=== PATIENT | female | born 1985 | race Caucasian/White ===

== ENCOUNTER 2017-09-05 06:05 | Emergency (ER) | payer OTHER | END 2017-09-05 07:26 | disposition home or self-care (01) | LOC: M ED 06:05 | DX: R68.84 Jaw pain (principal); Z98.818 Other dental procedure status; M79.9 Soft tissue disorder, unspecified; Z88.0 Allergy status to penicillin; Z88.1 Allergy status to other antibiotic agents; Z88.5 Allergy status to narcotic agent; Z88.8 Allergy status to other drugs, medicaments and biological substances | CPT/HCPCS: 99282 ==

== ENCOUNTER 2017-09-05 22:52 | Emergency (ER) | payer OTHER ==
[2017-09-05] MEDS ORDERED: LORazepam 2 MG/ML VIAL (J2060) IM (23:30)
[2017-09-06 00:42] LABS: BASO # 0.1 10^3/uL (0.0-0.2); BASO % 0.5 % (0.0-1.0); EOS # 0.1 10^3/uL (0.0-0.50); EOS % 1.2 % (0.0-3.0); HEMATOCRIT 36.3 % (36.0-47.0); HEMOGLOBIN 12.8 g/dl (12.0-15.5); IMMATURE GRANULOCYTE % 0.3 % (0-3.0); LYMPH # 1.3 10^3/uL (1.5-4.5); LYMPH % 12.2 % (24.0-44.0); MEAN CORPUSCULAR HEMOGLOBIN 30.3 pg (27.0-33.0); MEAN CORPUSCULAR HGB CONC 35.3 g/dl (32.0-36.5); MONO % 9.5 % (0.0-5.0); NEUTROPHILS # 8.2 10^3/uL (1.8-7.7); NEUTROPHILS % 76.3 % (36.0-66.0); PLATELET COUNT, AUTOMATED 179 10^3/uL (150-450); RED BLOOD COUNT 4.22 10^6/uL (4.00-5.40); RED CELL DISTRIBUTION WIDTH 12.6 % (11.5-14.5); WHITE BLOOD COUNT 10.8 10^3/uL (4.0-10.0)
[2017-09-06] MEDS: NS 1,000 ML IV (00:55)
[2017-09-06] MEDS: ONDANSETRON 4MG/2ML VIAL (J2405) IV (00:55)
[2017-09-06 01:02] LABS: ANION GAP 13 MEQ/L (8-16); BLOOD UREA NITROGEN 8 MG/DL (7-18); CALCIUM LEVEL 9.1 MG/DL (8.5-10.1); CARBON DIOXIDE LEVEL 21 MEQ/L (21-32); CHLORIDE LEVEL 110 MEQ/L (98-107); CREATININE FOR GFR 0.53 MG/DL (0.55-1.30); GLOMERULAR FILTRATION RATE > 60.0 (>60); GLUCOSE, FASTING 96 MG/DL (70-100); HCG, SERUM QUANTITATIVE < 1.0 MIU/ML; POTASSIUM SERUM 3.6 MEQ/L (3.5-5.1); SODIUM LEVEL 144 MEQ/L (136-145)
[2017-09-06] MEDS: LORazepam 2 MG/ML VIAL (J2060) IV (01:06)
[2017-09-06] MEDS: CLINDAMYCIN 900 MG in APPROPRIATE DILUENT 1 EA IV (01:10)
[2017-09-06] MEDS ORDERED: ISOVUE-370 76% 100ML VIAL (Q9967) As Ordered (01:10)
[2017-09-06] MEDS: IBUPROFEN 600 MG TAB PO (03:08)
== END 2017-09-06 05:51 | disposition home or self-care (01) ==
LOC: M ED 22:52
DX: L03.211 Cellulitis of face (principal); I48.91 Unspecified atrial fibrillation; Z98.890 Other specified postprocedural states; Z79.899 Other long term (current) drug therapy; Z88.6 Allergy status to analgesic agent; Z88.1 Allergy status to other antibiotic agents; Z88.0 Allergy status to penicillin; Z88.5 Allergy status to narcotic agent
CPT/HCPCS: J2405

== ENCOUNTER 2017-09-06 21:28 | Emergency (ER) | payer OTHER ==
[2017-09-06] MEDS: NS 1,000 ML IV (10:00)
[2017-09-06 23:24] LABS: BASO % 0.3 % (0.0-1.0); EOS % 0.2 % (0.0-3.0); HEMATOCRIT 35.9 % (36.0-47.0); HEMOGLOBIN 12.4 g/dl (12.0-15.5); IMMATURE GRANULOCYTE % 0.5 % (0-3.0); LYMPH # 0.7 10^3/uL (1.5-4.5); LYMPH % 5.8 % (24.0-44.0); MEAN CORPUSCULAR HGB CONC 34.5 g/dl (32.0-36.5); MEAN CORPUSCULAR VOLUME 86.7 fl (80.0-96.0); MONO # 0.6 10^3/uL (0.0-0.8); MONO % 4.7 % (0.0-5.0); NEUTROPHILS # 11.2 10^3/uL (1.8-7.7); NEUTROPHILS % 88.5 % (36.0-66.0); PLATELET COUNT, AUTOMATED 202 10^3/uL (150-450); RED BLOOD COUNT 4.14 10^6/uL (4.00-5.40); RED CELL DISTRIBUTION WIDTH 12.7 % (11.5-14.5); WHITE BLOOD COUNT 12.7 10^3/uL (4.0-10.0)
[2017-09-06 23:42] LABS: ANION GAP 8 MEQ/L (8-16); BLOOD UREA NITROGEN 8 MG/DL (7-18); C REACTIVE PROTEIN QUANTITATIV 1.58 MG/DL (0.00-0.30); CALCIUM LEVEL 8.7 MG/DL (8.5-10.1); CARBON DIOXIDE LEVEL 22 MEQ/L (21-32); CHLORIDE LEVEL 113 MEQ/L (98-107); GLOMERULAR FILTRATION RATE > 60.0 (>60); GLUCOSE, FASTING 107 MG/DL (70-100); SODIUM LEVEL 143 MEQ/L (136-145)
== END 2017-09-07 01:47 | disposition home or self-care (01) ==
LOC: M ED 09-07 01:47
DX: R20.2 Paresthesia of skin (principal); T49.6X5A Adverse effect of otorhinolaryngological drugs and preparations, initial encounter; Y92.9 Unspecified place or not applicable; Y93.9 Activity, unspecified; Z79.899 Other long term (current) drug therapy; Z88.6 Allergy status to analgesic agent; Z88.0 Allergy status to penicillin; Z88.1 Allergy status to other antibiotic agents; Z88.5 Allergy status to narcotic agent
CPT/HCPCS: 83735

== ENCOUNTER → 2017-09-09 | Outpatient (REF) | payer OTHER ==
[2017-09-09 19:38] LABS: BACTERIA, URINE AUTO 1+ (NEGATIVE); MUCUS, URINE SMALL (NEGATIVE); RBC, URINE AUTO 0 /HPF (0-3); SQUAMOUS EPITHELIAL CELL UR AU 4 /HPF (0-6); WBC, URINE AUTO 1 /HPF (0-3)
== END ==
LOC: M LAB REF 09-11 12:14
DX: R30.0 Dysuria (principal)
CPT/HCPCS: 81015

== ENCOUNTER → 2017-10-18 | Outpatient (REF) | payer OTHER ==
[2017-10-18 18:21] LABS: HCG, SERUM QUANTITATIVE 17193 MIU/ML
[2017-10-18 18:41] LABS: HEMATOCRIT 39.2 % (36.0-47.0); HEMOGLOBIN 13.4 g/dl (12.0-15.5); MEAN CORPUSCULAR HEMOGLOBIN 29.9 pg (27.0-33.0); MEAN CORPUSCULAR HGB CONC 34.2 g/dl (32.0-36.5); MEAN CORPUSCULAR VOLUME 87.5 fl (80.0-96.0); PLATELET COUNT, AUTOMATED 273 10^3/uL (150-450); RED BLOOD COUNT 4.48 10^6/uL (4.00-5.40); WHITE BLOOD COUNT 12.2 10^3/uL (4.0-10.0)
[2017-10-19 09:53] LABS: RUBELLA IgG QUALITATIVE IMMUNE (IMMUNE)
[2017-10-19 09:56] LABS: HBsAg Prenatal NEGATIVE (NEGATIVE)
[2017-10-19 10:21] LABS: HEPATITIS C VIRUS ABY INDEX 0.1 INDEX (<0.8)
[2017-10-19 10:22] LABS: HIV 1&2 SCREEN CENTAUR NEGATIVE (NEGATIVE)
== END ==
LOC: M LAB REF 16:51
DX: O36.80X0 Pregnancy with inconclusive fetal viability, not applicable or unspecified (principal)
CPT/HCPCS: 86762

== ENCOUNTER 2017-10-29 07:30 | Emergency (ER) | payer OTHER ==
[2017-10-29 08:24] LABS: AMORPHOUS SEDIMENT RFX SMALL (NEGATIVE); KETONE, URINE AUTO RFX NEGATIVE (NEGATIVE); LEUKOCYTE ESTERASE UR AUTO RFX NEGATIVE (NEGATIVE); MUCUS, URINE RFX SMALL (NEGATIVE); NITRITE, URINE AUTO RFX NEGATIVE (NEGATIVE); RBC, URINE AUTO RFX 0 /HPF (0-3); SPECIFIC GRAVITY UR AUTO RFX 1.014 (1.002-1.035); SQUAM EPITHELIAL CELL UR AURFX 1 /HPF (0-6); WBC, URINE AUTO RFX 0 /HPF (0-3)
== END 2017-10-29 09:57 | disposition home or self-care (01) ==
LOC: M ED 07:30
DX: O99.611 Diseases of the digestive system complicating pregnancy, first trimester (principal); Z3A.01 Less than 8 weeks gestation of pregnancy; Z79.899 Other long term (current) drug therapy; Z88.6 Allergy status to analgesic agent; Z88.0 Allergy status to penicillin; Z88.1 Allergy status to other antibiotic agents; Z88.5 Allergy status to narcotic agent
CPT/HCPCS: 76801

== ENCOUNTER → 2018-01-03 | Outpatient (REF) | payer OTHER ==
[2018-01-03 14:25] LABS: ALT/SGPT 18 U/L (12-78); AST/SGOT 16 U/L (7-37); BILIRUBIN,TOTAL 0.4 MG/DL (0.2-1.0); CREATININE FOR GFR 0.36 MG/DL (0.55-1.30); GLOMERULAR FILTRATION RATE > 60.0 (>60); LDH LACTATE DEHYDROGENASE 157 U/L (84-246); URIC ACID 2.9 MG/DL (2.6-6.0)
== END ==
LOC: M LAB REF 13:26
DX: O09.293 Supervision of pregnancy with other poor reproductive or obstetric history, third trimester (principal); Z34.82 Encounter for supervision of other normal pregnancy, second trimester

== ENCOUNTER → 2018-01-17 | Outpatient (REF) | payer OTHER | LOC: M LAB REF 09:25 | DX: J02.9 Acute pharyngitis, unspecified (principal) | CPT/HCPCS: 87081 ==

== ENCOUNTER → 2018-01-21 | Outpatient (REF) | payer OTHER ==
[2018-01-21 11:59] LABS: CREATININE, URINE 71.2 MG/DL; URINE TOTAL PROTEIN 10.5 MG/DL (0-12)
[2018-01-21 12:11] LABS: CREATININE 24 HOUR, URINE 640.8 MG/24HR (600-1800); TOTAL PROTEIN 24 HOUR URINE 94.5 MG/24HR (50-150); TOTAL VOLUME, URINE 900 ML
== END ==
LOC: M LAB REF 10:18
DX: O09.293 Supervision of pregnancy with other poor reproductive or obstetric history, third trimester (principal); Z34.82 Encounter for supervision of other normal pregnancy, second trimester

== ENCOUNTER → 2018-03-28 | Outpatient (CLI) | payer OTHER ==
[~2018-03-28] MED LIST: ACET-683 PO; CLIN150C14 PO; IBUP1TAB7 PO; IBUP80TA PO; MAGN100T PO; MELA5TAB17 PO; PERI12LIQ PO; PERI12LIQ SSP; PRENCHW PO; ZOFR4TAB14 PO
[2018-03-28 10:48] LABS: HEMATOCRIT 38.9 % (36.0-47.0); HEMOGLOBIN 13.2 g/dl (12.0-15.5); MEAN CORPUSCULAR HEMOGLOBIN 29.6 pg (27.0-33.0); MEAN CORPUSCULAR HGB CONC 33.9 g/dl (32.0-36.5); MEAN CORPUSCULAR VOLUME 87.2 fl (80.0-96.0); PLATELET COUNT, AUTOMATED 171 10^3/uL (150-450); RED BLOOD COUNT 4.46 10^6/uL (4.00-5.40); WHITE BLOOD COUNT 10.5 10^3/uL (4.0-10.0)
== END ==
LOC: M LAB 09:04
PROVIDERS: ATTEND Obstetrics & Gynecology
DX: Z34.82 Encounter for supervision of other normal pregnancy, second trimester (principal); Z3A.00 Weeks of gestation of pregnancy not specified

== ENCOUNTER → 2018-05-14 | Outpatient (REF) | payer OTHER | LOC: M LAB REF 13:28 | PROVIDERS: ATTEND Obstetrics & Gynecology | DX: Z34.83 Encounter for supervision of other normal pregnancy, third trimester (principal); Z36.85 Encounter for antenatal screening for Streptococcus B ==

== ENCOUNTER 2018-05-26 20:18 | Inpatient (IN) | payer OTHER ==
[~2018-05-26] VITALS: Ht 160 cm; Wt 75.3 kg
[2018-05-26 20:58] VITALS: BP 160/100
[2018-05-26 21:32] LABS: HEMATOCRIT 41.3 % (36.0-47.0); HEMOGLOBIN 14.1 g/dl (12.0-15.5); MEAN CORPUSCULAR HEMOGLOBIN 28.8 pg (27.0-33.0); MEAN CORPUSCULAR HGB CONC 34.1 g/dl (32.0-36.5); MEAN CORPUSCULAR VOLUME 84.3 fl (80.0-96.0); PLATELET COUNT, AUTOMATED 161 10^3/uL (150-450); WHITE BLOOD COUNT 14.1 10^3/uL (4.0-10.0)
[2018-05-26 21:46] LABS: ALT/SGPT 12 U/L (12-78); BILIRUBIN,TOTAL 0.4 MG/DL (0.2-1.0); CREATININE FOR GFR 0.47 MG/DL (0.55-1.30); GLOMERULAR FILTRATION RATE > 60.0 (>60); LDH LACTATE DEHYDROGENASE 203 U/L (84-246); URIC ACID 4.3 MG/DL (2.6-6.0)
[2018-05-26 21:48] VITALS: BP 140/95
[2018-05-26 21:55] LABS: CREATININE,RANDOM URINE 47.9 MG/DL; TOTAL PROTEIN,RANDOM URINE 6.1 MG/DL (0.0-12.0)
[2018-05-26 22:30] VITALS: BP 139/87
[2018-05-26 23:13] VITALS: BP 133/87
[2018-05-26] MEDS ORDERED: LACTATED RINGER'S 1000 ML IV STA (23:36)
[2018-05-26] MEDS ORDERED: LR 1,000 ML IV SCH (23:36)
[2018-05-26] MEDS ORDERED: BICITRA 30ML SOLN UDC PO ONE (23:45)
[2018-05-27] VITALS (8 sets, daily range): BP systolic 120–143; BP diastolic 59–83
[2018-05-27] MEDS ORDERED: OXYTOCIN INJ 10 UNITS/ML VIAL (J2590) As Ordered ONE (00:56)
[2018-05-27] MEDS ORDERED: MORPHINE PRES-FREE INJ 10 MG/10 ML VIAL (J2274) As Ordered ONE (01:02)
[2018-05-27] MEDS ORDERED: diphenhydrAMINE INJ 50MG/ML VIAL (J1200) IV PRN (01:15)
[2018-05-27] MEDS ORDERED: NALOXONE INJ 0.4 MG/1 ML VIAL (J2310) IV PRN ×2 (01:15)
[2018-05-27] MEDS ORDERED: NALBUPHINE HCL 10 MG/ML AMP (J2300) IV PRN (01:15)
[2018-05-27] MEDS ORDERED: ONDANSETRON 4MG/2ML VIAL (J2405) IV PRN ×3 (01:15→02:15)
[2018-05-27] MEDS ORDERED: METOCLOPRAMIDE INJ 10MG/2ML VIAL (J2765) IV PRN (01:15)
[2018-05-27] MEDS ORDERED: KETOROLAC 60 MG/2 ML VIAL (J1885) As Ordered ONE (01:44)
[2018-05-27] MEDS ORDERED: fentaNYL 100 MCG/2 ML INJECTION (J3010) As Ordered ONE (01:44)
[2018-05-27] MEDS ORDERED: dexameTHASONE 4 MG/ML 1ML VIAL (J1100) As Ordered ONE (01:44)
[2018-05-27] MEDS ORDERED: ONDANSETRON 4MG/2ML VIAL (J2405) As Ordered ONE (01:44)
[2018-05-27] MEDS ORDERED: ePHEDrine SULFATE 25 MG/5 ML(5MG/ML) SYRINGE As Ordered ONE (01:48)
[2018-05-27] MEDS ORDERED: OXYTOCIN DRIP 30 UNITS in APPROPRIATE DILUENT 1 EA IV SCH (02:12)
[2018-05-27] MEDS ORDERED: DOCUSATE SODIUM 100 MG CAP PO PRN (02:15)
[2018-05-27] MEDS ORDERED: LR 1,000 ML IV SCH (02:15)
[2018-05-27] MEDS ORDERED: RHOGAM 300 MCG (1500 IU) INJ (J2790) IM SCH (02:15)
[2018-05-27] MEDS ORDERED: MEASLES,MUMPS,RUBELLA VACCINE INJ (MMR-II) (90707) SC SCH (02:15)
[2018-05-27] MEDS ORDERED: fentaNYL 100 MCG/2 ML INJECTION (J3010) IV PRN (02:15)
[2018-05-27] MEDS ORDERED: OXYTOCIN 30 UNITS IN 0.9% NaCl 500ML IV BAG (J2590) As Ordered ONE (02:34)
[2018-05-27] MEDS ORDERED: diphenhydrAMINE INJ 50MG/ML VIAL (J1200) As Ordered ONE (02:39)
[2018-05-27] MEDS: LR 1,000 ML IV SCH ×3 (08:12→18:12)
[2018-05-27] MEDS: PRENATAL VITAMINS CHEWABLE TABLET PO SCH (08:12)
[2018-05-27] MEDS: KETOROLAC 30 MG/ML VIAL (J1885) IV SCH ×3 (08:13→20:10)
--- NOTE | 2018-05-27 13:18 | HPE ---
DATE OF ADMISSION: 05/26/2018 33-year-old, 3, para 2 female at 37 and 2/7 weeks gestation by last menstrual period and consistent with 7 week ultrasound, estimated date of confinement (EDC) of 06/15/2018, who presents with shortness of breath when lying down as well as upper abdominal discomfort. The patient feels more swelling and gets dizzy when she stands up. She has recently elevated blood pressure in an office visit. COURSE: The patient's care was at [facility]. care was unremarkable. Her final visit she had a blood pressure of 140/90 in the office. OBSTETRICAL HISTORY: 1. In 2012, 39 week section, 6 pound 9 ounce female , complicated by preeclampsia. 2. August 2014, 40 week section, 8 pound 4 ounce male infant, complicated by bladder injury. MEDICAL HISTORY: 1. Cardiac ablation for abnoirmal cardiac rhythm. PAST SURGICAL HISTORY: 1. Cardiac ablation. 2. section. 3. Oral surgery. SOCIAL HISTORY: The patient is . She denies cigarettes, alcohol or drug use. FAMILY HISTORY: Noncontributory. PHYSICAL EXAMINATION: Blood pressure 160/100, pulse 84. She appears mildly uncomfortable. Head and neck exam is normal. Lungs: Clear. Heart: Regular rate and rhythm. Abdomen: Gravid, nontender. heart tones category 1. Extremities: 1+ edema. Reflexes 3+. LABORATORIES: Blood type is O positive, Rubella immune, RPR is nonreactive. Hepatitis B and C negative. Group B streptococcus (GBS) negative. ASSESSMENT: 33-year-old 3, para 2 female at 37 and 3/7 weeks gestation. History of section times two. Presents with new diagnosis of preeclampsia. PLAN: Proceed with delivery. The patient will undergo repeat section with bilateral tubal ligation, consent signed. Surgery planned imminently. [facility]
--- NOTE | 2018-05-27 13:49 | RO ---
DATE OF PROCEDURE: 05/27/2018 PREPROCEDURE DIAGNOSIS: 37 and 2/7 weeks gestation, preeclampsia, prior section times two. POSTPROCEDURE DIAGNOSIS: 37 and 2/7 weeks gestation, preeclampsia, prior section times two. PROCEDURE: Repeat low transverse section and bilateral tubal ligation. SURGEON: Dr. Parveen Vanegas MUSIC SPECIALIST: ANESTHESIA: Spinal. ESTIMATED BLOOD LOSS: 500 mL. URINE OUTPUT: 100 mL. FINDINGS: 6 pound 8 ounce male , Apgars 9 and 9. Normal uterus, fallopian tubes and ovaries. DESCRIPTION OF PROCEDURE: The patient was taken to the operating room where spinal anesthesia was induced. She was prepped and draped in sterile fashion in the supine position. A Yoo catheter was placed. A Pfannenstiel skin incision was made with the scalpel and carried through to the fascia. The fascia was nicked and extended and the fascia was dissected off the rectus muscles. The peritoneal cavity was entered. A bladder flap was created. A curvilinear incision was made in the lower uterine segment until clear fluid was noted. This was extended manually. The infant was delivered from the vertex position without difficulty. The cord was doubly clamped and cut. The was handed off to the awaiting nurses. The placenta was expressed. The uterus was exteriorized and cleared of clots and debris. The uterine incision was closed with #0 Vicryl in a running locked fashion. A second imbricating layer of #0 Vicryl was placed. Attention was turned to the fallopian tubes. The tubes were grasped at the mid portion with a C[place]han clamp. A window was created in the broad ligament. A free tie of #3-0 chromic was placed around a segment of tube on either side of the clamp. A knuckle of tube was excised and sent to pathology bilaterally. The uterus was placed back in the abdominal cavity. The peritoneum was closed with #2-0 Vicryl in a running fashion. The fascia was closed with #0 Vicryl in a running fashion. The deep subcutaneous layer was irrigated. The skin was closed with #4-0 Monocryl subcuticular sutures. Sponge, needle and instrument counts were correct.
--- NOTE | 2018-05-27 21:03 | ECGEPIP ---
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
[2018-05-28 02:00] VITALS: BP 115/58
[2018-05-28] MEDS: IBUPROFEN 800 MG TAB PO SCH ×3 (04:41→20:40)
[2018-05-28 06:00] VITALS: BP 124/60
[2018-05-28] MEDS: PRENATAL VITAMINS CHEWABLE TABLET PO SCH (07:36)
[2018-05-28 07:53] LABS: HEMATOCRIT 28.3 % (36.0-47.0); MEAN CORPUSCULAR HEMOGLOBIN 29.1 pg (27.0-33.0); MEAN CORPUSCULAR HGB CONC 33.2 g/dl (32.0-36.5); MEAN CORPUSCULAR VOLUME 87.6 fl (80.0-96.0); PLATELET COUNT, AUTOMATED 118 10^3/uL (150-450); RED BLOOD COUNT 3.23 10^6/uL (4.00-5.40); WHITE BLOOD COUNT 11.1 10^3/uL (4.0-10.0)
[2018-05-28 07:58] LABS: HEMOGLOBIN 9.4 g/dl (12.0-15.5)
[2018-05-28 10:00] VITALS: BP 130/70
[2018-05-28] MEDS: ACETAMINOPHEN 500 MG TAB PO PRN ×2 (10:21→18:38)
[2018-05-28 14:00] VITALS: BP 140/71
[2018-05-28 18:00] VITALS: BP 134/74
[2018-05-28 22:29] VITALS: BP 138/78
[2018-05-29] MEDS: ACETAMINOPHEN 500 MG TAB PO PRN ×2 (02:03→08:40)
[2018-05-29 02:13] VITALS: BP 133/85
[2018-05-29] MEDS: IBUPROFEN 800 MG TAB PO SCH (04:56)
[2018-05-29 05:16] VITALS: BP 139/74
[2018-05-29] MEDS: PRENATAL VITAMINS CHEWABLE TABLET PO SCH (08:40)
[2018-05-29] MEDS ORDERED: COLA100C5 PO (09:43)
[2018-05-29] MEDS ORDERED: PRENTAB9 PO (09:43)
[2018-05-29] MEDS ORDERED: IBUP-1114 PO (09:43)
--- NOTE | 2018-05-30 21:15 | DSES ---
DATE OF ADMISSION: 05/26/2018 DATE OF DISCHARGE: 05/29/2018 HISTORY: A 33-year-old G3, P2 female at 37-2/7 weeks gestation presents with increased blood pressure and swelling for the last several days. She is known to have blood pressures as high as 160/100. She has a history of two prior sections. Planning on repeat section. care was through [facility]. HOSPITAL COURSE: Patient was admitted on 05/26/2018. She was observed for several hours and had multiple blood pressure readings. She had labs checked for pre-eclampsia, which were reassuring; however, due to elevated blood pressure, decision was made to proceed toward delivery. On 05/27/2018 patient underwent repeat low transverse section, bilateral tubal ligation, for a 6-pound 8-ounce male , scores 9 and 9. Her postoperative course was unremarkable. She had adequate return of bladder and bowel function. She was deemed stable for discharge on postoperative day #2. ADMISSION DIAGNOSES: , 37 weeks, pre-eclampsia. DISCHARGE DIAGNOSIS: Delivered. PROCEDURES: Repeat low transverse section, bilateral tubal ligation. DISPOSITION: Patient will followup with Dr. Jones in 2 weeks. Instructions were reviewed. edited: 05/31/2018 0723 tkf MTDD
== END 2018-05-29 10:20 | disposition home or self-care (01) | DRG 540 ==
LOC: M LDO 20:18 → M LDI 23:32 → M OBS 05-27 04:27
PROVIDERS: ADMIT Specialist; ATTEND Specialist
PROC: 0UB70ZZ Excision of Bilateral Fallopian Tubes, Open Approach (ICD-10-PCS; 2018-05-27)
PROC: 10D00Z1 Extraction of Products of Conception, Low, Open Approach (ICD-10-PCS; principal; 2018-05-27 01:04)
DX: O14.94 Unspecified pre-eclampsia, complicating childbirth (principal); Z30.2 Encounter for sterilization; O34.211 Maternal care for low transverse scar from previous cesarean delivery; Z37.0 Single live birth; Z3A.37 37 weeks gestation of pregnancy

== ENCOUNTER 2018-06-01 19:32 | Emergency (ER) | payer OTHER ==
[~2018-06-01] VITALS: Ht 160 cm; Wt 70.9 kg
[~2018-06-01 19:32] MED LIST changes: +COLA100C5 PO; +IBUP-1114 PO; +PRENTAB9 PO
[2018-06-01] MEDS ORDERED: fentaNYL 100 MCG/2 ML INJECTION (J3010) IV ONE (20:15)
[2018-06-01] MEDS ORDERED: METOCLOPRAMIDE INJ 10MG/2ML VIAL (J2765) IV ONE (20:15)
[2018-06-01 20:23] LABS: HEMATOCRIT 32.6 % (36.0-47.0); HEMOGLOBIN 11.1 g/dl (12.0-15.5); MEAN CORPUSCULAR HEMOGLOBIN 29.4 pg (27.0-33.0); MEAN CORPUSCULAR VOLUME 86.2 fl (80.0-96.0); PLATELET COUNT, AUTOMATED 212 10^3/uL (150-450); RED BLOOD COUNT 3.78 10^6/uL (4.00-5.40); WHITE BLOOD COUNT 14.5 10^3/uL (4.0-10.0)
[2018-06-01 20:44] LABS: BLOOD UREA NITROGEN 12 MG/DL (7-18); CALCIUM LEVEL 8.3 MG/DL (8.5-10.1); CARBON DIOXIDE LEVEL 20 MEQ/L (21-32); CHLORIDE LEVEL 113 MEQ/L (98-107); CREATININE FOR GFR 0.37 MG/DL (0.55-1.30); GLOMERULAR FILTRATION RATE > 60.0 (>60); GLUCOSE, FASTING 102 MG/DL (70-100); POTASSIUM SERUM 3.1 MEQ/L (3.5-5.1); SODIUM LEVEL 143 MEQ/L (136-145)
--- NOTE | 2018-06-01 21:27 | REPVR ---
EXAM: US Pelvis Complete, Transabdominal EXAM DATE/TIME: 06/01/2018 8:32 PM CLINICAL HISTORY: 33 years old, female; Pain; Pelvic pain; Prior surgery; Surgery date: 3-7 days post-operative; Surgery type: S/P c section on 05/27; Additional info: Post c section TECHNIQUE: Imaging protocol: Real-time transabdominal pelvic ultrasound with image documentation. Complete exam. COMPARISON: No relevant prior studies available. FINDINGS: Uterus/cervix: The uterus measures 14 CM in length by 7 CM in AP dimension by 10 CM in transverse dimension. The endometrium is complex and measuring 2 CM in thickness probably blood and blood products. There is no evidence of vascularity. The uterus is anteverted. Right adnexa: The right ovary could not be identified. Left adnexa: The patient had a on 05/27/2018. The left ovary measures 3 CM in length by 3 CM in AP dimension and there is vascular flow. Free fluid: Just superior to the scar deep within the anterior abdominal wall is a 10 CM transverse by 7 CM in length by 2 CM in thickness fluid collection probably representing a serous fluid collection. There is no evidence of free fluid in the cul-de-sac. IMPRESSION: 1. 10 x 7 x 2 CM hematoma deep within the anterior abdominal wall. 2. Complex appearance of the endometrium 2 CM in thickness probably blood and blood products. Electronically signed by: Chris Lobo On 06/01/2018 21:27:18 PM
[2018-06-01 21:54] VITALS: BP 130/71
[2018-06-01] MEDS ORDERED: POTASSIUM CHLORIDE 10 MEQ SR TABLET PO ONE (22:00)
[2018-06-01] MEDS ORDERED: IBUP-1022 PO (22:01)
--- NOTE | 2018-06-02 09:50 | ED PDOC ---
Post-Departure Follow-Up dr lucas faxed formal report of pelvic us for fu Dali Jarvis MD Jun 02, 2018 09:50
== END 2018-06-01 22:23 | disposition home or self-care (01) ==
LOC: M ED 19:32
DX: G89.18 Other acute postprocedural pain (principal); R10.9 Unspecified abdominal pain; L76.34 Postprocedural seroma of skin and subcutaneous tissue following other procedure; Z79.899 Other long term (current) drug therapy; Z88.1 Allergy status to other antibiotic agents; Z88.0 Allergy status to penicillin; Z88.5 Allergy status to narcotic agent; Z88.8 Allergy status to other drugs, medicaments and biological substances
CPT/HCPCS: 36415; 76856; 80048; 85027; 86850; 86900; 86901; 96374; 99284; J2765

== ENCOUNTER 2019-02-10 08:41 | Emergency (ER) | payer OTHER ==
[~2019-02-10] VITALS: Ht 160 cm; Wt 63.6 kg
[~2019-02-10 08:41] MED LIST changes: +IBUP-1022 PO; -MELA5TAB17 PO; +MELA5TAB31 PO
[2019-02-10] MEDS ORDERED: CYCLOBENZAPRINE 5MG TABLET PO ONE (09:45)
--- NOTE | 2019-02-10 10:12 | REP ---
Chest x-ray: Two views. History: Left shoulder pain . Comparison study: No comparison chest x-ray . Findings: The lungs are well inflated and free of infiltrate. The pleural angles are sharp. The heart size is normal. Pulmonary vasculature is not increased. No significant bony abnormality is seen. Impression: Negative chest x-ray. Electronically Signed by Kalen Ramírez MD 02/10/2019 10:03 A
--- NOTE | 2019-02-10 10:13 | REP ---
Left shoulder: Three views. History: Left shoulder pain. Findings: The left glenohumeral and acromioclavicular joints are normally aligned. Periarticular soft tissues are unremarkable. No fracture or subluxation is seen. Impression: Negative radiographs of the left shoulder. Electronically Signed by Kalen Ramírez MD 02/10/2019 10:04 A
[2019-02-10 10:50] LABS: CK-MB VALUE MASS < 1.0 NG/ML (<3.6); CPK CREATINE PHOSPHOKINASE 48 U/L (26-192); MB/CK RELATIVE INDEX 2.08 (< OR =4); TROPONIN I < 0.02 NG/ML (< 0.10)
[2019-02-10] MEDS ORDERED: IBUP80TA PO (11:25)
[2019-02-10] MEDS ORDERED: CYCL5TAB PO (11:25)
[2019-02-10 11:31] VITALS: BP 128/79
--- NOTE | 2019-02-10 16:53 | ECGEPIP ---
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
== END 2019-02-10 11:35 | disposition home or self-care (01) ==
LOC: M ED 09:45
DX: S46.912A Strain of unspecified muscle, fascia and tendon at shoulder and upper arm level, left arm, initial encounter (principal); M62.838 Other muscle spasm; M54.2 Cervicalgia; X50.3XXA Overexertion from repetitive movements, initial encounter; Y92.89 Other specified places as the place of occurrence of the external cause; Y93.9 Activity, unspecified; Y99.9 Unspecified external cause status; Z88.5 Allergy status to narcotic agent; Z88.1 Allergy status to other antibiotic agents; Z88.0 Allergy status to penicillin

== ENCOUNTER 2019-02-17 04:05 | Inpatient (IN) | payer OTHER ==
[~2019-02-17] VITALS: Ht 157.5 cm; Wt 69.8 kg
[~2019-02-17 04:05] MED LIST changes: +CYCL5TAB PO
[2019-02-17] MEDS ORDERED: METOPROLOL 5 MG/5 ML VIAL As Ordered ONE (04:24)
[2019-02-17 04:29] LABS: BASO # 0.1 10^3/uL (0.0-0.2); BASO % 0.5 % (0.0-1.0); EOS % 0.2 % (0.0-3.0); HEMATOCRIT 45.8 % (36.0-47.0); HEMOGLOBIN 15.3 g/dl (12.0-15.5); LYMPH # 1.3 10^3/uL (1.5-5.0); LYMPH % 10.9 % (24.0-44.0); MEAN CORPUSCULAR HEMOGLOBIN 28.7 pg (27.0-33.0); MEAN CORPUSCULAR HGB CONC 33.4 g/dl (32.0-36.5); MEAN CORPUSCULAR VOLUME 85.9 fl (80.0-96.0); MONO # 0.7 10^3/uL (0.0-0.8); MONO % 5.7 % (0.0-5.0); NEUTROPHILS # 9.4 10^3/uL (1.5-8.5); NEUTROPHILS % 82.1 % (36.0-66.0); PLATELET COUNT, AUTOMATED 421 10^3/uL (150-450); RED BLOOD COUNT 5.33 10^6/uL (4.00-5.40); WHITE BLOOD COUNT 11.4 10^3/uL (4.0-10.0)
[2019-02-17] MEDS ORDERED: METOPROLOL TART 50 MG TAB PO ONE (04:30)
[2019-02-17] MEDS: METOPROLOL 5 MG/5 ML VIAL IV SCH ×3 (04:46→05:13)
[2019-02-17 05:01] LABS: AMPHETAMINES LEVEL URINE NEGATIVE (NEGATIVE); BARBITURATES URINE NEGATIVE (NEGATIVE); BENZODIAZEPINES URINE NEGATIVE (NEGATIVE); CANNABINOIDS URINE NEGATIVE (NEGATIVE); COCAINE METABOLITE URINE NEGATIVE (NEGATIVE); METHADONE URINE NEGATIVE (NEGATIVE); OPIATES URINE NEGATIVE (NEGATIVE); PHENCYCLIDINE URINE NEGATIVE (NEGATIVE)
[2019-02-17 05:02] LABS: HCG, SERUM QUALITATIVE NEGATIVE (NEGATIVE)
[2019-02-17 05:11] LABS: BLOOD UREA NITROGEN 14 MG/DL (7-18); CALCIUM LEVEL 9.9 MG/DL (8.5-10.1); CARBON DIOXIDE LEVEL 20 MEQ/L (21-32); CHLORIDE LEVEL 113 MEQ/L (98-107); CK-MB VALUE MASS < 1.0 NG/ML (<3.6); CPK CREATINE PHOSPHOKINASE 29 U/L (26-192); CREATININE FOR GFR 0.75 MG/DL (0.55-1.30); ETHYL ALCOHOL (ETHANOL) < 0.003 % (0.000-0.010); GLOMERULAR FILTRATION RATE > 60.0 (>60); GLUCOSE, FASTING 124 MG/DL (70-100); MAGNESIUM LEVEL 2.3 MG/DL (1.8-2.4); MB/CK RELATIVE INDEX 3.45 (< OR =4); POTASSIUM SERUM 4.2 MEQ/L (3.5-5.1); SODIUM LEVEL 144 MEQ/L (136-145); TROPONIN I < 0.02 NG/ML (< 0.10)
[2019-02-17] MEDS ORDERED: FLECAINIDE 50MG TABLET PO ONE ×3 (05:45→21:00)
--- NOTE | 2019-02-17 07:58 | REP ---
Portable chest x-ray: Single view. History: Chest pain. Comparison study: February 10, 2019. Findings: EKG monitoring electrodes overlie the chest. Lungs are well inflated and clear. The pleural angles are sharp. Heart is not enlarged. Pulmonary vasculature is not increased. No significant bony abnormality. Impression: No acute disease. Electronically Signed by Kalen Ramírez MD 02/17/2019 07:49 A
[2019-02-17] MEDS ORDERED: ACETAMINOPHEN TAB 650MG DOSE (2X325MG) PO ONE (09:30)
[2019-02-17] MEDS ORDERED: ONDANSETRON 4MG/2ML VIAL (J2405) IV ONE (09:30)
[2019-02-17] MEDS: NS 1,000 ML IV SCH ×2 (11:29→18:26)
[2019-02-17] MEDS ORDERED: ACET-907 PO (11:39)
[2019-02-17] MEDS ORDERED: BENA25CA4 PO (11:39)
[2019-02-17] MEDS: METOPROLOL TART 25 MG TABLET PO SCH ×2 (14:12→17:34)
[2019-02-17 15:13] LABS: CK-MB VALUE MASS < 1.0 NG/ML (<3.6); CPK CREATINE PHOSPHOKINASE 23 U/L (26-192); MB/CK RELATIVE INDEX 4.35 (< OR =4); TROPONIN I < 0.02 NG/ML (< 0.10)
[2019-02-17 17:15] VITALS: BP 131/84
[2019-02-17] MEDS ORDERED: ENOXAPARIN 80 MG/0.8 ML SYRINGE (J1650) SC ONE (18:00)
--- NOTE | 2019-02-17 19:05 | CR ---
DATE OF CONSULTATION: 02/17/2019 This is an addendum to the official consultation note dictated by Dr. Volodymyr Izquierdo who is a medical advisor working with me today. In brief, Mrs. Owusu is a 33-year-old female who has no significant past medical history other than a history of atrial fibrillation. She tells me that she started having symptoms in her teens and 20s and eventually underwent atrial fibrillation ablation in 2009 after she had persistent atrial fibrillation for several days. To the best of her understanding, there was never any obvious etiology discovered. She was then asymptomatic until she got last year. She said that she had numerous episodes during her , at least an episode a day, but they were never very long and always resolved by next day. But last night she woke up at night to feed her baby, and as she took the baby, she suddenly experienced sensation of palpitations and dizziness that was persistent and she actually came to emergency room for further evaluation. She was found to be in atrial fibrillation with rapid ventricular response. She was slightly hypotensive. After receiving some fluids and IV metoprolol, her heart rate slowed down but never completely normalized. She received a total of 250 mg of flecainide but to my surprise, she did not convert into sinus rhythm. After she received additional beta blockers, her heart rate is now well controlled and she feels reasonably well but not completely back to normal. At bedside, she is very pleasant, alert and oriented. I do not appreciate any signs to suggest congestive heart failure. There is no goiter. Her lungs are clear. On heart exam, besides irregular rhythm is benign. I do not appreciate any displacement of precordial impulse. There is no murmur or gallop. She has no peripheral edema. ECG reveals and confirms presence of atrial fibrillation. Her CBC is normal other than mildly elevated white count of 11.4. Basic metabolic panel is unremarkable other than glucose 124. She had two sets of cardiac enzymes with negative troponins. Her TSH is 0.8. HCG is negative and toxicology screen is negative as well. Chest x-ray Is unremarkable. ASSESSMENT/PLAN: Mrs. Owusu is a 33-year-old female who reports a longstanding history of paroxysmal atrial fibrillation until ablation in 2009 in [place], [place]. She apparently did not have any symptomatic relapse until last year during . There was improvement after she delivered, but last night she developed sustained episode that so far has been lasting until now. I have to say that it is decidedly unusual for a young woman without significant past medical history to have atrial fibrillation. She has not had an echocardiogram but based on her ECG, physical exam, and clinical history, it is unlikely that she has any degree of systolic dysfunction. I also do not appreciate any evidence for valvular heart disease. I will give her additional dose of flecainide tonight. She also received single dose of Lovenox. If she is not in sinus rhythm by tomorrow morning, will tentatively plan on cardioversion. I discussed this plan with the patient.
[2019-02-17 20:00] VITALS: BP 134/84
[2019-02-17 20:24] LABS: CK-MB VALUE MASS < 1.0 NG/ML (<3.6); CPK CREATINE PHOSPHOKINASE 19 U/L (26-192); MB/CK RELATIVE INDEX 5.26 (< OR =4); TROPONIN I < 0.02 NG/ML (< 0.10)
[2019-02-17] MEDS ORDERED: diphenhydrAMINE 25 MG CAP PO ONE (21:45)
[2019-02-17] MEDS ORDERED: diphenhydrAMINE CREAM 30GM TOP PRN (22:00)
[2019-02-17 23:59] VITALS: BP 129/72
[2019-02-18] MEDS: METOPROLOL TART 25 MG TABLET PO SCH ×3 (00:15→12:36)
[2019-02-18] MEDS: NS 1,000 ML IV SCH (00:44)
[2019-02-18 04:00] VITALS: BP 118/84
[2019-02-18] MEDS ORDERED: ACETAMINOPHEN TAB 650MG DOSE (2X325MG) PO PRN (05:15)
[2019-02-18 06:59] LABS: HEMATOCRIT 39.9 % (36.0-47.0); MEAN CORPUSCULAR HEMOGLOBIN 28.7 pg (27.0-33.0); MEAN CORPUSCULAR HGB CONC 31.8 g/dl (32.0-36.5); MEAN CORPUSCULAR VOLUME 90.1 fl (80.0-96.0); PLATELET COUNT, AUTOMATED 276 10^3/uL (150-450); RED BLOOD COUNT 4.43 10^6/uL (4.00-5.40); WHITE BLOOD COUNT 9.4 10^3/uL (4.0-10.0)
[2019-02-18 07:08] LABS: HEMOGLOBIN 12.7 g/dl (12.0-15.5)
[2019-02-18 07:20] LABS: ALBUMIN 3.3 GM/DL (3.2-5.2); ALT/SGPT 72 U/L (12-78); BILIRUBIN,TOTAL 0.3 MG/DL (0.2-1.0); BLOOD UREA NITROGEN 13 MG/DL (7-18); CARBON DIOXIDE LEVEL 22 MEQ/L (21-32); CHLORIDE LEVEL 115 MEQ/L (98-107); CREATININE FOR GFR 0.58 MG/DL (0.55-1.30); GLOMERULAR FILTRATION RATE > 60.0 (>60); GLUCOSE, FASTING 82 MG/DL (70-100); MAGNESIUM LEVEL 1.9 MG/DL (1.8-2.4); POTASSIUM SERUM 3.8 MEQ/L (3.5-5.1); SODIUM LEVEL 144 MEQ/L (136-145); TOTAL PROTEIN 6.2 GM/DL (6.4-8.2)
[2019-02-18 08:00] VITALS: BP 134/90
[2019-02-18] MEDS ORDERED: BETAMETHASONE DIP 0.05% OINT 15 GM TOP SCH (09:00)
[2019-02-18] MEDS ORDERED: FLECAINIDE 50MG TABLET PO SCH (09:00)
[2019-02-18] MEDS ORDERED: METO1TAB7 PO (10:41)
[2019-02-18] MEDS ORDERED: FLEC25TA PO (10:41)
--- NOTE | 2019-02-18 10:42 | IPN ---
DATE: 02/18/2019 CARDIOLOGY PROGRESS NOTE Marisa is examined at bedside in progressive care unit (PCU). She feels much better today and converted back to normal sinus rhythm yesterday evening around 9:00 p.m. after an extra 150 mg flecainide orally. No issues throughout the night. She is feeling well, back to normal self and looking forward to going home. PHYSICAL EXAMINATION: VITAL SIGNS: Temperature 97.8, pulse 65, respirations 18, blood pressure 134/92, mean arterial pressure of 105, pulse oximetry 99% on room air. Weight is 69.8 kg. She is resting comfortably in bed and in no acute distress. Fully alert, oriented and pleasantly conversant. In better spirits today. Neck is supple without any jugular venous distention (JVD). HEART: Regular rate and rhythm. No longer in atrial fibrillation. No murmur, clicks or gallops. LUNGS: Clear throughout with equal chest rise. No adventitious sounds. ABDOMEN: Soft, nontender, nondistended. No lower extremity edema or tenderness. ASSESSMENT AND PLAN: This is a 33-year-old female with a history of what is presumed to be paroxysmal atrial fibrillation since her early 20s, likely secondary to . She underwent an ablation in 2009. She has had intermittent episodes of palpitations with her most recent . Her heart rate is well controlled today in the 60s to 70s and she converted back to normal sinus rhythm yesterday evening after a total of 400 mg of flecainide. Her rate is well controlled on Lopressor this morning. She is otherwise doing well. Echo will be done today, and she is safe to go home from a cardiac standpoint. She should continue her flecainide 50 mg twice a day and Lopressor 25 mg every 6 hours for rate and rhythm control. Followup outpatient in the cardiac clinic in March. Does not need anticoagulation given her CHADs-VASc score of 1 for her female gender. We will need to obtain her prior cardiac records from professor criminal justice, Dr. Stark in [place], [place], and her cardiac ablation from [place].
--- NOTE | 2019-02-18 11:18 | ECGEPIP ---
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
[2019-02-18] MEDS ORDERED: BETA5OI TOP (11:56)
--- NOTE | 2019-02-18 12:03 | CR ---
DATE OF CONSULTATION: 02/17/2019 REASON FOR CONSULTATION: Atrial fibrillation, rapid ventricular response (RVR). REQUESTING PROVIDER: ER physician, Dr. Swartz. HISTORY OF PRESENT ILLNESS: Ms. Owusu is a 33-year-old female who reports a history of chronic atrial fibrillation that began in her 20s with her initial . She reports she was on Toprol at that time on and off as her symptoms improved. She also underwent an ablation in 2009 due to persistent tachycardia and atrial fibrillation while she was symptomatic. She reports she did well for a few years until most recently when she became with her third child and started re-experiencing palpitations. She gave via in May of this year and her palpitations continued afterwards. She reports normally her palpitations are intermittent and self resolving. Now coming into the ER due to severe palpitations that came on suddenly when she lifted her baby at 2:00 a.m. She tried waiting out her palpitation episode, however, continued to feel lightheaded, dizzy, nauseous and a burning sensation in her mid chest. Therefore, called the ambulance. Per ER report, her heart rate upon their assessment was in the 200s and she was in the 150s upon arrival in the emergency room. In total, she received Lopressor 5 mg IV times three doses, Lopressor 50 mg by mouth times one, flecainide 150 mg by mouth times one and again 100 mg by mouth afterwards with some improvement in her symptoms with heart rate down to the 90s. Mrs. Owusu denies ever having a history of cardioversion in the past and reports that she normally used to follow with her acds block [address] Stark in [place], [place], with reportedly normal echos, most recently in 2015. She thereafter moved here to [place] and has not followed ever since with a primary doctor or a acds block 1 operator. Of note, she also does have an extensive cardiac history in her family positive for myocardial infarctions, atrial fibrillation and congestive heart failure. Upon inquiring with the patient, she believes her cause of atrial fibrillation was either genetic or induced, but is not fully sure. At the time of exam in the ER, her heart rate is maintaining around 110 to 120 and the patient is still mildly symptomatic. Of note, she denies any recent travel or sick contacts and major illnesses, however, just completed a five day course of oral prednisone just yesterday for a presumed upper respiratory infection (URI), prescribed by Urgent Care. She denies any other changes in medications. PAST MEDICAL HISTORY: Chronic atrial fibrillation, not on anticoagulation, history of cardiac ablation in 2009. ALLERGIES: AMOXICILLIN - AZITHROMYCIN - CHLORHEXIDINE - DEXAMETHASONE - HYDROCODONE - MORPHINE - OXYCODONE HOME MEDICATIONS: - Tylenol as needed - Benadryl as needed FAMILY HISTORY: Grandmother on maternal side had a myocardial infarction (OK) and pacemaker. Grandmother on paternal side had a OK three times. Uncles on paternal side had atrial fibrillation, heart disease and congestive heart failure. SOCIAL HISTORY: Denies ever smoking or chewing tobacco. Denies illegal substances and other drugs. Drinks alcohol minimally on rare occasion. Lives at home with and three children. Unemployed currently. Used to work in [employer]. SURGICAL HISTORY: section and cardiac ablation. REVIEW OF SYSTEMS: 10 point review of systems asked, positive pertinents mentioned in history of present illness (HPI). She denies any recent fever, chills, nausea, vomiting, weight changes, appetite changes, chest pain, orthopnea, paroxysmal nocturnal dyspnea, edema. Denies any skin rashes, lesions, any joint issues, or any abdominal pain. Admits to palpitations with associated burning sensation and nausea, dizziness, and shortness of breath with these episodes. PHYSICAL EXAMINATION: Vitals: Temperature 98.1, pulse 117, respirations 18, blood pressure 132/92, MAP of 105, pulse oximetry 98% on room air. She is resting comfortably in bed in no acute distress, fully alert and oriented times three and appropriately conversant. Jugular venous pulse (JVP) is not elevated. Her heart is irregular rhythm and tachycardiac in the low 100s. Lungs are clear throughout with equal chest rise and without any wheezing, rhonchi or rales or any accessory muscle use. There is no peripheral edema or calf tenderness. Abdomen is soft, nontender and benign. Neck is supple, without any murmurs. No cardiac murmur, clicks or gallops. LABS: WBC 11.4, hemoglobin 15.3, platelets 421. Sodium 144 and potassium 4.2. BUN and creatinine 14 and 0.75. Magnesium 2.3. Troponin negative. TSH 0.86 - normal. HCG negative. Toxicology screen is negative as well. Chest x-ray on admission is free of any cardiopulmonary disease. ASSESSMENT AND PLAN: This is a 33-year-old female who has a presumed history of chronic atrial fibrillation since her 20s who underwent cardiac ablation in 2010 and has since had intermittent palpitations that self resolved for the most part until yesterday with which she had severe palpitations and associated nausea, shortness of breath and dizziness which led her into the emergency room. Reportedly, her heart rate was as high as the 200s and now into the 90s and low 100s status post flecainide a total of 250 mg by mouth and Lopressor 50 mg by mouth and 5 mg IV times three. She still is symptomatic even at rest, although mildly improved from prior to admission. Considering that she had sought care mostly in [place], [place], by Dr. Stark, and has not followed up on care since 2016, will attempt to obtain prior workup records to find the cause of her atrial fibrillation in an otherwise young and healthy patient. Echo is also ordered and repeat cardiac markers, a total of three sets. In the meanwhile, given her blood pressure will be able to tolerate, we will start on by mouth Lopressor 25 mg every 6 hours with hold parameters and will monitor on telemetry overnight. If her RVR does not resolve by the morning, will likely have to proceed with electrical cardioversion. This is discussed with the patient and she is agreeable with this plan. She is at low risk of having an atrial thrombus and will give a one time dose of therapeutic Lovenox tonight in anticipation for a possible cardioversion in the morning. Thank you for this consultation. We shall be happy to follow along.
[2019-02-18 12:36] VITALS: BP 144/80
--- NOTE | 2019-02-18 20:47 | HPEPDOC ---
[facility] Medical History & Physical Date of Admission Feb 17, 2019 Date of Service: Feb 17, 2019 History and Physical CHIEF COMPLAINT: palpitations HISTORY OF PRESENT ILLNESS: 33 yo female presents for one day history dizziness and palpitations. Patient has long standing history of arrhythmia, which appears to be afib, starting in her late teens. In 2009, this culminated to ablation therapy in [place]. She states that she would occasionally be aware of palpitations sporadically, but they would typically spontaneously resolve. She recently gave by , in May, which apparently has exacerbated her a-fib, with more frequent episodes of palpitations, which again would typically spontaneously resolved, until yesterday, prompting her to come to the ED. She denies chest pain, shortness of breath, abdominal pain, nausea/vomiting/diarrhea, headaches, changes in vision. PAST MEDICAL HISTORY: a-fib s/p ablation ALLERGIES: Please see below. REVIEW OF SYSTEMS: Negative except as per HPI. HOME MEDICATIONS: Please see below. PHYSICAL EXAMINATION: VITAL SIGNS: See below GENERAL APPEARANCE: NAD HEENT:NC/AT CARDIOVASCULAR: +S1S2, tachycardia, -M/R/G LUNGS: CTA B/L ABDOMEN: soft, NT, +BS LABORATORY DATA: See below. MICROBIOLOGY: Please see below. ASSESSMENT: 33 yo female with long standing history of a-fib s/p ablation, presents for palpitations and dizziness, found to be in a-fib with RVR, with minimal response to pharmacologic therapy. #afib/RVR - telemetry monitoring - echocardiogram - cardio c/s - Lovenox x 1 for a/c , possibility of cardioversion Dispo: pending clinical improvement Vital Signs Vital Signs Date Time Temp Pulse Resp B/P (MAP) Pulse Ox O2 Delivery O2 Flow Rate FiO2 02/18/19 12:36 76 144/80 02/18/19 08:00 97.8 18 99 Room Air Laboratory Data Labs 24H Laboratory Tests 2 02/18/19 06:13: Nucleated Red Blood Cells % (auto) 0.0, Anion Gap 7L, Glomerular Filtration Rate > 60.0, Calcium Level 8.0#L, Magnesium Level 1.9, Total Bilirubin 0.3, Aspartate Amino Transf (AST/SGOT) 52H, Alanine Aminotransferase (ALT/SGPT) 72, Alkaline Phosphatase 63, Total Protein 6.2L, Albumin 3.3, Albumin/Globulin Ratio 1.14 CBC/BMP Laboratory Tests 02/18/19 06:13 Home Medications Scheduled Betamethasone Dip (Betamethasone Dipropionate) 15 Gm Oint...g., 0 DOSE TOP BID Apply to affected areas. Do not apply to face. Flecainide Acetate (Flecainide Acetate) 50 Mg Tablet, 50 MG PO BID Metoprolol Succinate (Metoprolol Succinate) 50 Mg Tab.er.24h, 1 TAB PO DAILY Scheduled PRN Acetaminophen (Tylenol) 325 Mg Tablet, 650 MG PO QID PRN for PAIN Diphenhydramine HCl (Benadryl) 25 Mg Capsule, 25 MG PO QHS PRN for SLEEP Allergies Coded Allergies: morphine (Verified Allergy, Severe, 06/01/18) amoxicillin (Verified Allergy, Intermediate, 06/01/18) azithromycin (Verified Allergy, Intermediate, 06/01/18) chlorhexidine (Verified Allergy, Intermediate, hives, 06/01/18) dexamethasone (Verified Allergy, Intermediate, 06/01/18) hydrocodone (Verified Allergy, Intermediate, 06/01/18) oxycodone (Verified Allergy, Intermediate, 06/01/18) A-FIB/CHADSVASC A-FIB History Current/History of A-Fib/PAF?: Yes Current PO Anticoag Therapy: Yes BROCK REEVES MD Feb 18, 2019 20:47
--- NOTE | 2019-02-18 21:10 | ECHO ---
DATE OF PROCEDURE: 02/18/2019 Date of : 1985 Age: 33 Gender: Female. Height: 62 inches Weight: 156 pounds Body surface area: 1.73 meters squared Inpatient: Progressive care unit (PCU), room 3225 REFERRING PHYSICIAN: Dr. Volodymyr Izquierdo INDICATION: Abnormal EKG/cardiac dysrhythmias. MEASUREMENTS: 2D Measurements: RV: 4.0 cm LV: 4.8 cm Septum: 1.1 cm Posterior wall: 1.0 cm Aortic root: 2.7 cm LA: 3.7 cm LVEF: 65% Doppler Measurements: AV: 1.3 meters per second LVOT: 0.9 meters per second LVOT diameter: 1.8 cm MV-E: 80, A: 50, EA ratio: 1.6 Early mitral deceleration time: 176 milliseconds E prime medial: 8.9, A prime medial: 5.7, E prime lateral: 10.3. PV: 1.2 meters per second Pulmonary artery acceleration time: 120 milliseconds RVSP: 21 mmHg IVC: 1.0 cm COMMENTS: Normal sinus rhythm without intraventricular conduction disturbance. M-mode and two-dimensional echocardiography was performed with pulsed, continuous wave, color flow and tissue Doppler studies. Normal left ventricular size, wall thickness and wall motion. Normal left atrial size and Doppler assessment of left ventricular (LV) diastolic function. Normal right heart chamber sizes and motion and estimated pulmonary arterial pressure. Normal inferior vena cava (IVC) size and collapse against an elevated central venous pressure. Normal appearing and functioning valvular structures. Very mild mitral and mild tricuspid insufficiency (physiologic). No apparent intracardiac mass or pericardial effusion.
--- NOTE | 2019-02-18 21:56 | ECGEPIP ---
[facility] - ED Test Date: 2019-02-17 Pat Name: INGA HAY Department: Room: - Gender: Female [employer]: : 1985 Requested By: Cayetano Nelson Order Number: [id number] Reading MD: Clarita Oviedo Measurements Intervals [place] Rate: 151 P: IA: 0 QRS: 55 QRSD: 89 T: -8 QT: 287 QTc: 455 Interpretive Statements ATRIAL FIBRILLATION WITH RAPID VENTRICULAR RESPONSE NONSPECIFIC ST & T-WAVE ABNORMALITY PRIOR SINUS RHYTHM 02/10/19 Electronically Signed on 02-18-2019 21:55:42 EST by Clarita Oviedo
--- NOTE | 2019-02-20 00:35 | DS.PDOC ---
Discharge Summary General Date of Admission Feb 17, 2019 at 11:37 Date of Discharge 02/18/19 Discharge Summary PROCEDURES PERFORMED DURING STAY: [None]. DISCHARGE DIAGNOSES: Paroxysmal Afib with rapid ventricular response COMPLICATIONS/CHIEF COMPLAINT: Atrial Fibrillation With RVR HISTORY OF PRESENT ILLNESS: see history and physical HOSPITAL COURSE: 33 yo female with long standing history of Paroxysmal a-fib s/p ablation, presents for palpitations and dizziness, found to be in a-fib with RVR which corrected with flecainide and metoprolol. Afib/RVR now in sinus. continue on flecainisdee and metoprolol succinate. echocardiogram normal Follow up Dr Garcia. DISCHARGE MEDICATIONS: Please see below. ALLERGIES: Please see below. PHYSICAL EXAMINATION ON DISCHARGE: VITAL SIGNS: Please see below. GENERAL APPEARANCE: NAD HEENT:NC/AT, Moist mucous membranes , anicteric eyes. Neck : no JVD, supple. CARDIOVASCULAR: +S1S2, normal rate, regular rhythm No M/R/G LUNGS: CTA B/L ABDOMEN: soft, NT, +BS Extremities no yelena. a LABORATORY DATA: Please see below. ACTIVITY: [As tolerated]. DIET: Regular DISPOSITION: 01 Home, Self-Care. DISCHARGE INSTRUCTIONS: Follow up with Dr Garcia in 1 week PMD in 2 weeks. DISCHARGE CONDITION: [Stable]. TIME SPENT ON DISCHARGE: 35 minutes. Vital Signs/I&Os Vital Signs Date Time Temp Pulse Resp B/P (MAP) Pulse Ox O2 Delivery O2 Flow Rate FiO2 02/18/19 12:36 76 144/80 02/18/19 08:00 97.8 18 99 Room Air Laboratory Data CBC/BMP Item Value Date Time White Blood Count 9.4 10^3/uL 02/18/19 06 Red Blood Count 4.43 10^6/uL 02/18/19 0613 Hemoglobin 12.7 g/dl # 02/18/19612 Hematocrit 39.9 % 02/18/19612 Mean Corpuscular Volume 90.1 fl 02/18/19612 Mean Corpuscular Hemoglobin 28.7 pg 02/18/19612 Mean Corpuscular Hemoglobin Concent 31.8 g/dl L 02/18/19612 Red Cell Distribution Width 13.2 % 02/18/19612 Platelet Count 276 10^3/uL 12/17/19 0613 Sodium Level 144 MEQ/L 02/18/19 0613 Potassium Level 3.8 MEQ/L 02/18/19 0613 Chloride Level 115 MEQ/L H 02/18/19 0613 Carbon Dioxide Level 22 MEQ/L 02/18/19 0613 Anion Gap 7 MEQ/L L 02/18/19 0613 Creatinine 0.58 MG/DL 02/18/19 0613 Glomerular Filtration Rate > 60.0 02/18/19 0613 Fasting Glucose 82 MG/DL 02/18/19 0613 Calcium Level 8.0 MG/DL L # 02/18/19 0613 Blood Urea Nitrogen 13 MG/DL 02/18/19 0613 Magnesium Level 1.9 MG/DL 02/18/19 0613 Total Bilirubin 0.3 MG/DL 02/18/19 0613 Aspartate Amino Transf (AST/SGOT) 52 U/L H 02/18/19 0613 Alanine Aminotransferase (ALT/SGPT) 72 U/L 02/18/19 0613 Alkaline Phosphatase 63 U/L 02/18/19 0613 Total Protein 6.2 GM/DL L 02/18/19 0613 Albumin 3.3 GM/DL 02/18/19 0613 Albumin/Globulin Ratio 1.14 02/18/19 0613 Total Creatine Kinase 19 U/L L 02/17/191940 Creatine Kinase MB < 1.0 NG/ML 02/17/191940 Creatine Kinase MB Relative Index 5.26 H 02/17/191 Troponin I < 0.02 NG/ML 02/17/19 1941 Total Creatine Kinase 23 U/L L 02/17/19 1434 Creatine Kinase MB < 1.0 NG/ML 02/17/19 1434 Creatine Kinase MB Relative Index 4.35 H 02/17/19 1434 Troponin I < 0.02 NG/ML 02/17/19 1434 Discharge Medications Scheduled Betamethasone Dip (Betamethasone Dipropionate) 15 Gm Oint...g., 0 DOSE TOP BID Apply to affected areas. Do not apply to face. Flecainide Acetate (Flecainide Acetate) 50 Mg Tablet, 50 MG PO BID Metoprolol Succinate (Metoprolol Succinate) 50 Mg Tab.er.24h, 1 TAB PO DAILY Scheduled PRN Acetaminophen (Tylenol) 325 Mg Tablet, 650 MG PO QID PRN for PAIN, (Reported) Diphenhydramine HCl (Benadryl) 25 Mg Capsule, 25 MG PO QHS PRN for SLEEP, (Reported) Allergies Coded Allergies: morphine (Verified Allergy, Severe, 06/01/18) amoxicillin (Verified Allergy, Intermediate, 06/01/18) azithromycin (Verified Allergy, Intermediate, 06/01/18) chlorhexidine (Verified Allergy, Intermediate, hives, 06/01/18) dexamethasone (Verified Allergy, Intermediate, 06/01/18) hydrocodone (Verified Allergy, Intermediate, 06/01/18) oxycodone (Verified Allergy, Intermediate, 06/01/18) CASE SMITH MD Feb 20, 2019 00:35
== END 2019-02-18 12:44 | disposition home or self-care (01) | DRG 201 ==
LOC: M ED 04:05 → M ED INP 11:37 → M PCU 17:07
PROVIDERS: ADMIT Internal Medicine; ATTEND Internal Medicine Nephrology
DX: I48.0 Paroxysmal atrial fibrillation (principal); Z88.0 Allergy status to penicillin; Z79.899 Other long term (current) drug therapy; Z88.5 Allergy status to narcotic agent; Z88.8 Allergy status to other drugs, medicaments and biological substances

== ENCOUNTER → 2019-07-17 | Outpatient (REF) | payer OTHER ==
[~2019-07-17] MED LIST changes: +ACET-907 PO; +BENA25CA4 PO; +BETA5OI TOP; +FLEC25TA PO; +METO1TAB7 PO
== END ==
LOC: M WUC 10:13
PROVIDERS: ATTEND Physician Assistant
DX: J02.9 Acute pharyngitis, unspecified (principal)

== ENCOUNTER → 2020-11-12 | Outpatient (REF) | payer OTHER ==
[~2020-11-12] MED LIST changes: -CLIN150C14 PO; +CLIN150C17 PO; -MELA5TAB31 PO; +MELA5TAB36 PO
[2020-11-12 12:59] LABS: HEMATOCRIT 37.1 % (36.0-47.0); HEMOGLOBIN 12.2 g/dl (12.0-15.5); MEAN CORPUSCULAR HEMOGLOBIN 29.5 pg (27.0-33.0); MEAN CORPUSCULAR HGB CONC 32.9 g/dl (32.0-36.5); MEAN CORPUSCULAR VOLUME 89.6 fl (80.0-96.0); PLATELET COUNT, AUTOMATED 123 10^3/uL (150-450); RED BLOOD COUNT 4.14 10^6/uL (4.00-5.40); WHITE BLOOD COUNT 4.8 10^3/uL (4.0-10.0)
[2020-11-12 13:31] LABS: ALBUMIN 3.6 GM/DL (3.2-5.2); ALT/SGPT 197 U/L (12-78); BILIRUBIN,TOTAL 0.5 MG/DL (0.2-1.0); BLOOD UREA NITROGEN 10 MG/DL (7-18); CALCIUM LEVEL 8.6 MG/DL (8.5-10.1); CARBON DIOXIDE LEVEL 26 MEQ/L (21-32); CHLORIDE LEVEL 109 MEQ/L (98-107); CREATININE FOR GFR 0.54 MG/DL (0.55-1.30); GLOMERULAR FILTRATION RATE > 60.0 (>60); GLUCOSE, FASTING 80 MG/DL (70-100); IRON (FE) 115 UG/DL (50-170); PERCENT SATURATION 37.1 % (13.2-45.0); POTASSIUM SERUM 3.9 MEQ/L (3.5-5.1); RHEUMATOID FACTOR QUANT < 10.0 IU/ML (<15.0); SODIUM LEVEL 141 MEQ/L (136-145); TOTAL 25(OH) VITAMIN D 20.1 NG/ML (30.0-100.0); TOTAL IRON BINDING CAPACITY 310 UG/DL (250-450); TOTAL PROTEIN 6.8 GM/DL (6.4-8.2); VITAMIN B12 LEVEL 1061 PG/ML
[2020-11-12 13:32] LABS: FOLATE 8.3 NG/ML
[2020-11-12 13:36] LABS: ATYPICAL LYMPH 5 % (0-5); EOSINOPHILS 1 % (0-3); GIANT PLATELETS 1+; LYMPHOCYTES 27 % (16-44); MONOCYTES 10 % (0-5); NEUTROPHILS 57 % (28-66)
[2020-11-12 13:37] LABS: PLATELET ESTIMATE NORMAL (NORMAL)
[2020-11-12 18:29] LABS: ERYTHROCYTE SEDIMENTATION RATE 8 mm/hr (0-20)
[2020-11-13 19:07] LABS: ANA (HEP2) Negative (.); Lyme Disease IgG/IgM Antibodie <0.91 ISR (0.00-0.90); Lyme Disease IgM Ab Quantitati <0.80 index (0.00-0.79)
== END ==
LOC: M SFHCADAM 10:06
PROVIDERS: ATTEND Physician Assistant Medical
DX: M79.10 Myalgia, unspecified site (principal); R53.82 Chronic fatigue, unspecified; R51.9 Headache, unspecified; F32.0 Major depressive disorder, single episode, mild

== ENCOUNTER → 2020-11-25 | Outpatient (CLI) | payer OTHER ==
--- NOTE | 2020-11-25 08:54 | REP ---
INDICATION: ABN LABS PT NEEDS LABS AFTER US. COMPARISON: None. TECHNIQUE: Real-time sonographic evaluation of right upper quadrant performed. FINDINGS: The gallbladder demonstrates no evidence of intraluminal sludge or calculi, wall thickening or pericholecystic fluid. There is no intrahepatic or extrahepatic biliary dilatation, common bile duct measures 4 mm in maximum diameter. There are 2 cysts in the right lobe of the liver, 9 mm in diameter and a cyst with a thin septation 1.4 x 1.1 x 1.5 cm. The pancreas demonstrates homogeneous echotexture with no gross mass. The right kidney demonstrates no hydronephrosis, with a normal size of cm in length. No free fluid is seen. IMPRESSION: There are 2 benign appearing cysts in the right lobe of the liver. The right upper quadrant ultrasound is otherwise unremarkable. <Electronically signed by Ghulam Russo > 11/25/20 [id number]
[2020-11-25 14:27] LABS: HEPATITIS A ANTIBODY IGM NEGATIVE (NEGATIVE); HEPATITIS B CORE ANTIBODY IGM NEGATIVE (NEGATIVE); HEPATITIS B SURFACE ANTIGEN NEGATIVE (NEGATIVE)
== END ==
LOC: M LAB 08:10 → M RAD 08:10
PROVIDERS: ATTEND Physician Assistant Medical
DX: K76.89 Other specified diseases of liver (principal); R79.89 Other specified abnormal findings of blood chemistry

== ENCOUNTER → 2020-12-01 | Outpatient (REF) | payer OTHER ==
[2020-12-01 13:12] LABS: ALBUMIN 4.2 GM/DL (3.2-5.2); BILIRUBIN,DIRECT 0.1 MG/DL (0.0-0.2); BILIRUBIN,TOTAL 0.5 MG/DL (0.2-1.0); TOTAL PROTEIN 7.5 GM/DL (6.4-8.2)
== END ==
LOC: M SFHCADAM 09:17
PROVIDERS: ATTEND Physician Assistant Medical
DX: R79.89 Other specified abnormal findings of blood chemistry (principal)

== ENCOUNTER 2022-01-14 13:13 | Emergency (ER) | payer BC, OTHER ==
[~2022-01-14] VITALS: Ht 160 cm; Wt 63.6 kg
[2022-01-14] MEDS ORDERED: NS 1,000 ML IV ONE (14:35)
[2022-01-14] MEDS ORDERED: LORazepam 2 MG/ML VIAL IV STA ×2 (15:21→15:50)
[2022-01-14 15:54] LABS: BASO # 0.1 10^3/uL (0.0-0.2); BASO % 0.9 % (0.0-1.0); EOS # 0.1 10^3/uL (0.0-0.5); EOS % 1.3 % (0.0-3.0); HEMATOCRIT 37.1 % (36.0-47.0); HEMOGLOBIN 12.6 g/dl (12.0-15.5); LYMPH # 1.5 10^3/uL (1.5-5.0); LYMPH % 18.7 % (24.0-44.0); MEAN CORPUSCULAR HEMOGLOBIN 29.6 pg (27.0-33.0); MEAN CORPUSCULAR VOLUME 87.1 fl (80.0-96.0); MONO # 0.7 10^3/uL (0.0-0.8); NEUTROPHILS # 5.5 10^3/uL (1.5-8.5); NEUTROPHILS % 69.6 % (36.0-66.0); PLATELET COUNT, AUTOMATED 223 10^3/uL (150-450); RED BLOOD COUNT 4.26 10^6/uL (4.00-5.40); WHITE BLOOD COUNT 7.9 10^3/uL (4.0-10.0)
[2022-01-14 17:37] LABS: BLOOD UREA NITROGEN 13 MG/DL (7-18); CALCIUM LEVEL 8.7 MG/DL (8.5-10.1); CARBON DIOXIDE LEVEL 23 MEQ/L (21-32); CHLORIDE LEVEL 113 MEQ/L (98-107); CREATININE FOR GFR 0.55 MG/DL (0.55-1.30); GLOMERULAR FILTRATION RATE > 60.0 (>60); GLUCOSE, FASTING 87 MG/DL (70-100); POTASSIUM SERUM 3.8 MEQ/L (3.5-5.1); SODIUM LEVEL 142 MEQ/L (136-145)
[2022-01-14 17:53] VITALS: BP 134/66
== END 2022-01-14 18:14 | disposition home or self-care (01) ==
LOC: M ED 13:13 → EDBD 13:13 → M ED 18:14
DX: R56.9 Unspecified convulsions (principal); F41.9 Anxiety disorder, unspecified; Z87.42 Personal history of other diseases of the female genital tract; Z86.79 Personal history of other diseases of the circulatory system; Z88.1 Allergy status to other antibiotic agents; Z88.5 Allergy status to narcotic agent; Z88.6 Allergy status to analgesic agent; Z88.8 Allergy status to other drugs, medicaments and biological substances; Z79.899 Other long term (current) drug therapy
CPT/HCPCS: 36415; 70450; 80048; 82550; 85025; 96361; 96374; 99284; J2060

== ENCOUNTER → 2022-09-11 | Outpatient (REF) | payer OTHER, BC | LOC: M LAB REF 09:58 | PROVIDERS: ATTEND Nurse Practitioner Family | DX: J02.9 Acute pharyngitis, unspecified (principal) ==

== ENCOUNTER → 2022-10-12 | Outpatient (REF) | payer OTHER, BC ==
[2022-10-12 17:30] LABS: HEMATOCRIT 41.1 % (36.0-47.0); HEMOGLOBIN 13.3 g/dl (12.0-15.5); MEAN CORPUSCULAR HEMOGLOBIN 30.1 pg (27.0-33.0); MEAN CORPUSCULAR HGB CONC 32.4 g/dl (32.0-36.5); PLATELET COUNT, AUTOMATED 242 10^3/uL (150-450); RED BLOOD COUNT 4.42 10^6/uL (4.00-5.40); WHITE BLOOD COUNT 8.7 10^3/uL (4.0-10.0)
[2022-10-12 17:34] LABS: ALBUMIN 4.2 G/DL (3.2-5.2); ALKALINE PHOSPHATASE 70 U/L (46-116); ALT/SGPT 22 U/L (7.0-40); AST/SGOT 14 U/L (<34); BILIRUBIN,TOTAL 0.4 MG/DL (0.3-1.2); BLOOD UREA NITROGEN 8 MG/DL (9-23); CALCIUM LEVEL 9.3 MG/DL (8.5-10.1); CARBON DIOXIDE LEVEL 27 MMOL/L (20-31); CHLORIDE LEVEL 104 MMOL/L (98-107); CREATININE FOR GFR 0.57 MG/DL (0.55-1.30); GLOMERULAR FILTRATION RATE > 60.0 (>60); GLUCOSE, FASTING 75 MG/DL (60-100); POTASSIUM SERUM 4.1 MMOL/L (3.5-5.1); SODIUM LEVEL 141 MMOL/L (136-145); THYROID STIMULATING HORMONE 0.896 uIU/ML (0.55-4.78); TOTAL PROTEIN 7.4 G/DL (5.7-8.2)
[2022-10-12 17:35] LABS: FREE T4 1.05 NG/DL (0.89-1.76)
[2022-10-12 17:40] LABS: VITAMIN B12 LEVEL 884 PG/ML (211-911)
[2022-10-12 17:46] LABS: FOLATE 20.6 NG/ML (>5.4)
== END ==
LOC: M WUC 16:55
PROVIDERS: ATTEND Student in an Organized Health Care Education/Training Program
DX: R42 Dizziness and giddiness (principal)

== ENCOUNTER → 2023-03-28 | Outpatient (CLI) | payer BC, OTHER ==
[2023-03-28 12:28] LABS: BASO # 0.1 10^3/uL (0.0-0.2); BASO % 0.9 % (0.0-1.0); EOS # 0.4 10^3/uL (0.0-0.5); EOS % 4.8 % (0.0-3.0); HEMATOCRIT 39.8 % (36.0-47.0); HEMOGLOBIN 13.4 g/dl (12.0-15.5); LYMPH # 2.4 10^3/uL (1.5-5.0); LYMPH % 26.5 % (24.0-44.0); MEAN CORPUSCULAR HEMOGLOBIN 29.8 pg (27.0-33.0); MEAN CORPUSCULAR HGB CONC 33.7 g/dl (32.0-36.5); MEAN CORPUSCULAR VOLUME 88.4 fl (80.0-96.0); MONO % 10.6 % (2.0-8.0); NEUTROPHILS # 5.1 10^3/uL (1.5-8.5); NEUTROPHILS % 56.6 % (36.0-66.0); PLATELET COUNT, AUTOMATED 266 10^3/uL (150-450)
[2023-03-28 12:53] LABS: HEMOGLOBIN A1c 4.6 % (4.0-6.0)
[2023-03-28 13:01] LABS: ALBUMIN 4.2 G/DL (3.2-5.2); ALKALINE PHOSPHATASE 69 U/L (46-116); ALT/SGPT 15 U/L (7.0-40); AST/SGOT 9 U/L (<34); BILIRUBIN,TOTAL 0.5 MG/DL (0.3-1.2); BLOOD UREA NITROGEN 21 MG/DL (9-23); CALCIUM LEVEL 9.5 MG/DL (8.5-10.1); CARBON DIOXIDE LEVEL 26 MMOL/L (20-31); CHLORIDE LEVEL 106 MMOL/L (98-107); CHOLESTEROL LEVEL 205 MG/DL (<200); CREATININE FOR GFR 0.61 MG/DL (0.55-1.30); FERRITIN 26.2 NG/ML (7.3-270.7); FREE T4 1.12 NG/DL (0.89-1.76); GLOMERULAR FILTRATION RATE > 60.0 (>60); GLUCOSE, FASTING 65 MG/DL (60-100); HDL CHOLESTEROL 53.9 MG/DL (>40); IRON (FE) 127 UG/DL (50-170); LDL CHOLESTEROL 128.9 MG/DL (<100); MAGNESIUM LEVEL 2.1 MG/DL (1.8-2.4); NON-HDL-C 151.1 MG/DL; PERCENT SATURATION 38.6 % (13.2-45.0); SODIUM LEVEL 138 MMOL/L (136-145); THYROID STIMULATING HORMONE 0.954 uIU/ML (0.55-4.78); TOTAL IRON BINDING CAPACITY 329 UG/DL (250-425); TOTAL PROTEIN 7.6 G/DL (5.7-8.2); TRIGLYCERIDES LEVEL 111 MG/DL (<150)
[2023-03-28 13:02] LABS: TOTAL 25(OH) VITAMIN D 30.6 NG/ML (20.0-100.0)
[2023-03-28 13:03] LABS: FOLATE 21.57 NG/ML (>5.4)
[2023-03-28 13:04] LABS: VITAMIN B12 LEVEL 995 PG/ML (211-911)
== END ==
LOC: M WUC 08:32
PROVIDERS: ATTEND Registered Nurse
DX: Z00.00 Encounter for general adult medical examination without abnormal findings (principal); M62.838 Other muscle spasm; I48.20 Chronic atrial fibrillation, unspecified

== ENCOUNTER → 2023-06-12 | Outpatient (CLI) | payer BC, OTHER | LOC: M SOG 14:02 | PROVIDERS: ATTEND Physician Assistant | DX: M54.12 Radiculopathy, cervical region (principal) ==

== ENCOUNTER → 2023-07-03 | Outpatient (CLI) | payer BC | LOC: M PLAIMG 10:14 | PROVIDERS: ATTEND Orthopaedic Surgery | DX: M54.12 Radiculopathy, cervical region (principal) ==

== ENCOUNTER → 2023-08-14 | Outpatient (CLI) | payer BC | LOC: M SOG 09:15 | PROVIDERS: ATTEND Physician Assistant | DX: M54.50 Low back pain, unspecified (principal) ==

== ENCOUNTER → 2023-10-18 | Outpatient (CLI) | payer BC ==
[~2023-10-18] MED LIST changes: +CYCL-707; +NAPR-885; +PREG50CA3; +SERT50TA29
== END ==
LOC: M SOG 07:50
PROVIDERS: ATTEND Physician Assistant
DX: M54.6 Pain in thoracic spine (principal)

== ENCOUNTER 2023-10-19 07:44 | Emergency (ER) | payer BC ==
[~2023-10-19] VITALS: Ht 157.5 cm; Wt 65.4 kg
[~2023-10-19 07:44] MED LIST changes: -CYCL-707; -NAPR-885; -PREG50CA3; -SERT50TA29
[2023-10-19] MEDS ORDERED: NAPR-885 (11:46)
[2023-10-19] MEDS ORDERED: CYCL-707 (11:46)
[2023-10-19] MEDS ORDERED: SERT50TA29 (11:46)
[2023-10-19] MEDS ORDERED: PREG50CA3 (11:46)
[2023-10-19 13:24] VITALS: BP 119/69; TEMP 97.6; O2SAT 100
== END 2023-10-19 13:31 | disposition short-term general hospital (02) ==
LOC: M ED 07:44
DX: D17.79 Benign lipomatous neoplasm of other sites (principal); G95.81 Conus medullaris syndrome; F41.9 Anxiety disorder, unspecified; M48.061 Spinal stenosis, lumbar region without neurogenic claudication; M51.36 Other intervertebral disc degeneration, lumbar region; Z88.0 Allergy status to penicillin; Z88.5 Allergy status to narcotic agent; Z88.8 Allergy status to other drugs, medicaments and biological substances; Z79.899 Other long term (current) drug therapy; Z79.1 Long term (current) use of non-steroidal anti-inflammatories (NSAID)

== ENCOUNTER → 2023-11-01 | Outpatient (CLI) | payer BC ==
[~2023-11-01] MED LIST changes: +CYCL-707; +NAPR-885; +PREG50CA3; +SERT50TA29
== END ==
LOC: M PLARAD 07:47
PROVIDERS: ATTEND Orthopaedic Surgery Hand Surgery
DX: M51.24 Other intervertebral disc displacement, thoracic region (principal); M50.322 Other cervical disc degeneration at C5-C6 level; M50.323 Other cervical disc degeneration at C6-C7 level; M50.33 Other cervical disc degeneration, cervicothoracic region

== ENCOUNTER → 2023-11-12 | Outpatient (REF) | payer BC ==
[2023-11-12 18:18] LABS: APPEARANCE, URINE CLOUDY (CLEAR); BACTERIA, URINE AUTO 1+ (NEGATIVE); BILIRUBIN, URINE AUTO NEGATIVE (NEGATIVE); BLOOD, URINE BLOOD 1+ (NEGATIVE); COLOR, URINE AMBER (YELLOW); GLUCOSE, URINE (UA) AUTO NEGATIVE (NEGATIVE); KETONE, URINE AUTO NEGATIVE (NEGATIVE); LEUKOCYTE ESTERASE, URINE AUTO NEGATIVE (NEGATIVE); MUCUS, URINE SMALL (NEGATIVE); NITRITE, URINE AUTO NEGATIVE (NEGATIVE); PROTEIN, URINE AUTO NEGATIVE (NEGATIVE); RBC, URINE AUTO 0 /HPF (0-3); SPECIFIC GRAVITY URINE AUTO 1.011 (1.002-1.035); SQUAMOUS EPITHELIAL CELL UR AU 1 /HPF (0-6); UROBILINOGEN, URINE AUTO 0.2 mg/dL (0.0-2.0); WBC, URINE AUTO 0 /HPF (0-3)
== END ==
LOC: M LAB REF 16:59
PROVIDERS: ATTEND Registered Nurse
DX: M54.50 Low back pain, unspecified (principal); R35.0 Frequency of micturition

== ENCOUNTER → 2024-05-22 | Outpatient (CLI) | payer BC ==
[~2024-05-22] MED LIST changes: -CYCL5TAB PO; +CYCL5TAB4 PO
[2024-05-22 18:23] LABS: BASO # 0.1 10^3/uL (0.0-0.2); BASO % 1.3 % (0.0-1.0); EOS # 0.4 10^3/uL (0.0-0.5); EOS % 5.4 % (0.0-3.0); HEMATOCRIT 36.9 % (36.0-47.0); HEMOGLOBIN 12.3 g/dl (12.0-15.5); LYMPH % 28.9 % (24.0-44.0); MEAN CORPUSCULAR HEMOGLOBIN 29.6 pg (27.0-33.0); MEAN CORPUSCULAR HGB CONC 33.3 g/dl (32.0-36.5); MEAN CORPUSCULAR VOLUME 88.7 fl (80.0-96.0); MONO # 0.7 10^3/uL (0.0-0.8); MONO % 9.4 % (2.0-8.0); NEUTROPHILS # 3.8 10^3/uL (1.5-8.5); NEUTROPHILS % 54.7 % (36.0-66.0); PLATELET COUNT, AUTOMATED 216 10^3/uL (150-450); RED BLOOD COUNT 4.16 10^6/uL (4.00-5.40); WHITE BLOOD COUNT 6.9 10^3/uL (4.0-10.0)
[2024-05-22 18:54] LABS: TOTAL IRON BINDING CAPACITY 326 UG/DL (250-425)
[2024-05-22 18:55] LABS: ALBUMIN 4.3 G/DL (3.2-5.2); ALKALINE PHOSPHATASE 66 U/L (35-104); ALT/SGPT 16 U/L (7.0-40); AST/SGOT 18 U/L (<34); BILIRUBIN,TOTAL 0.4 MG/DL (0.3-1.2); BLOOD UREA NITROGEN 17 MG/DL (9-23); CARBON DIOXIDE LEVEL 28 MMOL/L (20-31); CHLORIDE LEVEL 105 MMOL/L (98-107); CREATININE FOR GFR 0.66 MG/DL (0.55-1.30); GLOMERULAR FILTRATION RATE > 60.0 (>58); GLUCOSE, FASTING 78 MG/DL (60-100); IRON (FE) 68 UG/DL (50-170); MAGNESIUM LEVEL 1.9 MG/DL (1.8-2.4); PERCENT SATURATION 20.9 % (13.2-45.0); POTASSIUM SERUM 3.8 MMOL/L (3.5-5.1); SODIUM LEVEL 142 MMOL/L (136-145); TOTAL 25(OH) VITAMIN D 14.8 NG/ML (20.0-100.0); TOTAL PROTEIN 7.1 G/DL (5.7-8.2)
[2024-05-22 18:56] LABS: FERRITIN 14.4 NG/ML (7.3-270.7); FOLATE 11.2 NG/ML (>5.4)
[2024-05-22 18:57] LABS: VITAMIN B12 LEVEL 845 PG/ML (211-911)
== END ==
LOC: M WUC 14:03
PROVIDERS: ATTEND Registered Nurse
DX: M79.606 Pain in leg, unspecified (principal)

== ENCOUNTER → 2024-10-15 | Outpatient (CLI) | payer BC, OTHER ==
[2024-10-15 12:22] LABS: C REACTIVE PROTEIN QUANTITATIV < 0.50 MG/DL (<1.0)
[2024-10-15 12:27] LABS: BASO # 0.1 10^3/uL (0.0-0.2); BASO % 1.6 % (0.0-1.0); EOS # 0.4 10^3/uL (0.0-0.5); EOS % 6.2 % (0.0-3.0); LYMPH # 1.4 10^3/uL (1.5-5.0); LYMPH % 24.3 % (24.0-44.0); MONO # 0.7 10^3/uL (0.0-0.8); MONO % 11.6 % (2.0-8.0); NEUTROPHILS # 3.3 10^3/uL (1.5-8.5); NEUTROPHILS % 56.1 % (36.0-66.0); PLATELET COUNT, AUTOMATED 208 10^3/uL (150-450)
[2024-10-15 12:30] LABS: ALT/SGPT 15 U/L (7.0-40); AST/SGOT 23 U/L (<34); CALCIUM LEVEL 9.2 MG/DL (8.5-10.1); CARBON DIOXIDE LEVEL 25 MMOL/L (20-31); CHLORIDE LEVEL 109 MMOL/L (98-107); CREATININE FOR GFR 0.68 MG/DL (0.55-1.30); GLOMERULAR FILTRATION RATE > 90.0 (>58); POTASSIUM SERUM 4.2 MMOL/L (3.5-5.1); SODIUM LEVEL 144 MMOL/L (136-145)
[2024-10-15 12:49] LABS: RHEUMATOID FACTOR QUANT < 3.5 IU/ML (<14)
[2024-10-15 13:23] LABS: ERYTHROCYTE SEDIMENTATION RATE 11 mm/hr (0-20)
== END ==
LOC: M WUC 09:27
PROVIDERS: ATTEND Registered Nurse
DX: M25.549 Pain in joints of unspecified hand (principal)